=== PATIENT | male | born 1990 | race Caucasian/White ===

== ENCOUNTER 2023-11-24 04:29 | Emergency (ER) | payer OTHER, SELFPAY ==
[2023-11-24 04:31] VITALS: BP 174/104
--- NOTE | 2023-11-24 04:55 | ED.GENMED ---
History of Present Illness
General
Chief Complaint: Anxiety
Source: patient and family (Father who is at bedside)
Exam Limitations: none
Time Seen by Provider: 11/24/23 04:43
Nursing documentation reviewed up to this point in time: agreed with
Travel History
Have you had any contact with someone who has COVID-19?: No
Do you have any symptoms of coronavirus? Fever > 100 degrees, chills, cough, shortness of breath, sore throat, loss of taste or smell, muscle aches, or headache?: No
History of Present Illness
History of Present Illness:
This is a 33-year-old morbidly obese gentleman who has history of insulin requiring diabetes, hypertension, hyperlipidemia who awoke at 2 AM with complaints of sudden onset of substernal chest discomfort associated with palpitations which he
describes as a sense of his heart beating rapidly and beating hard but denies a sense that his heart was beating irregularly. Chest discomfort was also associated with shortness of breath, diaphoresis and a feeling of anxiety/panic. Chest pain
radiated mildly to his jaw and he also noted some tingling in his left arm.
No history of similar episodes in the past. Symptoms have overall improved but have not resolved. No definitive aggravating or relieving factors.
He denies nausea, no cough, no fever nor chills. He denies dizziness nor lightheadedness, denies abdominal nor back pain.
He denies leg pain or swelling.
No personal history of coronary artery disease nor family history of CAD.
Patient states blood sugars have been fairly well-controlled.
His daily medications include: Atorvastatin, valsartan/HCTZ, nebivolol, levothyroxine, Zetia, Ozempic 0.5 mg, NovoLog, Tresiba.
Past History
Past History
ED Past Medical History: HTN, Hypercholesterolemia, IDDM, Hypothyroidism and Other (Morbid obesity)
ED Past Surgical History: None
Social History
Tobacco: Non-smoker
Alcohol: None
Drug: None
Personal: Single
Living: with family
Family History
Family History: Negative CAD
Phy Exam
Physical Exam
Physical Exam:
GENERAL: 33-year-old obese gentleman appears his stated age, awake and alert, pleasant, easily communicative, appears very mildly apprehensive otherwise in no acute distress. Father is accompanying.
EYE: anicteric
NECK: Supple, nontender, no meningismus, no significant adenopathy. No JVD.
ENT: oral mucosa is moist. No rhinorrhea.
CARDIAC: Regular rate and rhythm. no murmur. No rub.
LUNGS: Clear breath sounds bilaterally, no acute respiratory distress, no wheezes/rales/rhonchi
ABDOMEN: Rotund, soft, nondistended, without focal tenderness, no r/g, no cvat. normoactive BS.
NEUROLOGICAL: Alert and oriented x3, no focal neuro deficits.
SKIN: Warm and minimally diaphoretic, normal color, skin intact. No rash.
MUSCULOSKELETAL: No C/C/E. peripheral pulses are full and equal b/l. No palpable tenderness.
PSYCH: Normal and appropriate interaction.
Scores
Heart Score for Chest Pain Patients
STEMI patient?: No
History: Moderately Suspicious
ECG: Normal
Age: </= 45 years
Risk Factors: >/= 3 Risk Factors or History of CAD
Troponin: </= Normal Limit
Heart Score for Chest Pain Patients: 3
Heart Score Risk: 2.5% MACE over next 6 weeks
Course
Orders/Labs/Results
Orders:
Orders
11/24/23 04:54
Aspirin Chewable [Low Strength Aspirin] 324 mg PO NOW STA
11/24/23 04:55
Electrocardiogram (*1) Stat
Reason for Study: Other
Other Reason for Exam: chest pain
Cardiac Monitoring- Treatment ONCE
EKG- Treatment ONCE
CR Chest - 2 Views Urgent
Comment:
Reason For Exam: CP, SOB
11/24/23 05:14
Complete Blood Count/With Diff Urgent
Comprehensive Metabolic Panel Urgent
NT-proBNP Urgent
PTT Urgent
TSH Urgent
Troponin I Urgent
11/24/23 06:11
CT Chest Angio W/wo Iv Contras Urgent
Comment:
Reason For Exam: acute CP, accelerated HTN
11/24/23 07:00
Electrocardiogram (*1) Urgent
Reason for Study: Chest Pain
EKG- Treatment ONCE
Troponin I Urgent
Abnormal Lab Results
11/24/23
05:14
Abs Immat Gran (auto) 0.1 H 10^3/uL
(0-0.05)
Immature Gran % 0.7 H %
(0-0.5)
Sodium 133 L mmol/L
(135-145)
Glucose 252 H mg/dl
(70-99)
Alkaline Phosphatase 138 H U/L
(38-126)
11/24/23 05:14
11/24/23 05:14
Vital Signs
Initial and Last Documented VS:
Initial Vital Signs
Temp Pulse Resp BP Pulse Ox
98.1 F 82 18 174/104 98
11/24/23 04:31 11/24/23 04:31 11/24/23 04:31 11/24/23 04:31 11/24/23 04:31
Last Documented Vital Signs
Temp Pulse Resp BP Pulse Ox
98.1 F 90 17 134/76 97
11/24/23 04:31 11/24/23 07:00 11/24/23 07:00 11/24/23 07:00 11/24/23 07:00
MDM/Problems Addressed
Differential Diagnosis Includes:
Concern for ACS, accelerated hypertension, aortic dissection, GERD, arrhythmia, musculoskeletal chest pain, PE. Patient does have history of hypothyroidism, acute thyroid disorder as cause for symptoms is much less likely.
Will check labs including troponin, EKG and will consider imaging depending on results.
Will give 324 mg chewable aspirin now.
Chronic conditions affecting care: DM, HTN and Other (Hyperlipidemia, hypothyroidism)
*Radiology
Radiology exam reviewed: preliminary read by ED provider (Chest x-ray shows hazy nodular density left hilum otherwise unremarkable. No old chest x-rays to compare.) and radiology read reviewed
*Pulse Oximetry
Patient hypoxic: no
*EKG
Interpreted by ED Provider?: Yes
Comparison EKG: no comparison EKG present
Rate: normal
Rhythm: sinus
Herron: normal axis
Interval: normal interval
QRS Pattern: normal QRS
Ischemia: other (Mild early repolarization laterally and inferiorly without reciprocal changes.)
*Logistics Team Lead Interpretation
Rate: normal
Interpretation: normal
Rhythm: sinus
*Critical Care Note
Total Time (30-74mins, 75-104mins- exclusive of procedures): Not Applicable
Update Note
Update Note:
Patient is chest pain-free and comfortable within 40 minutes after arrival to the ED.
Initial EKG shows mild early repolarization inferolaterally but no reciprocal changes. No old EKGs to compare.
Moderate hypertension noted initially 174/104, has improved to 139/88 upon recheck.
Labs thus far are unremarkable save for a moderately elevated glucose of 252. Initial troponin is negative. BNP is normal. TSH is pending.
Chest x-ray shows hazy nodular density left hilum, otherwise unremarkable. No old EKGs to compare.
Will plan to repeat troponin and EKG at 7 AM.
Due to significantly elevated blood pressure initially with acute chest pain there is still some concern for aortic dissection thus will check CT angiogram of the chest. CT will also better demonstrate left nodular hilar density.
11/24/2023 0729 AM
Patient remains pain-free and comfortable.
Blood pressure has normalized without intervention.
CAT scan shows no evidence of dissection nor PE. Clear lung mccarty. There is note of cholelithiasis with no evidence of cholecystitis. There is also note of fatty liver, diffuse pancreatic parenchymal atrophy.
Acute chest pain may have been biliary colic in nature. It is reassuring that he is pain-free and comfortable.
Repeat EKG is similar and unchanged from previous.
Repeat troponin is pending and if remains negative we will plan for discharge to home with referral to our chest pain hotline especially in light of multiple risk factors for coronary artery disease.
Due to cholelithiasis and potential biliary colic as cause for pain will refer to general surgery as well.
ED Attending Note
-
Portions of this chart may have been created with voice recognition software.� Occasional wrong word or��sound alike� substitutions may have occurred due to the inherent limitations of voice recognition software.
Discharge Plan
Departure
Condition: Good
Discharge Problem:
Nonspecific chest pain, Cholelithiases
Instructions: Low Cholesterol, Saturated Fat, and Trans Fat Diet , Gallstones (DC), Chest Pain CBC Follow Up
Prescriptions:
No Action
atorvastatin 80 mg Tablet
80 mg PO DAILY
levothyroxine 75 mcg Tablet
75 mcg PO DAILY
insulin aspart U-100 [Novolog FlexPen U-100 Insulin] 100 unit/mL (3 mL) Insulin Pen
30 - 50 sliding scale dose SC TID
valsartan-hydrochlorothiazide 320-12.5 mg Tablet
1 tab PO DAILY
nebivolol 10 mg Tablet
10 mg PO DAILY
insulin degludec [Tresiba FlexTouch U-100] 100 unit/mL (3 mL) Insulin Pen
120 unit SC DAILY
Ozempic 0.25 mg or 0.5 mg (2 mg/3 mL) Pen Injector
0.5 mg SC QWEEK
Referrals:
Peter Montemayor MD [Family Provider] - Call in 1-3 days for appt
Marlon Green MD [Active] - Call in 1-3 days for appt
Interventions
Interventions:
*Risk Screen - Suicide Last Done: 11/24/23 04:31
*General Assessment Last Done: 11/24/23 04:58
*Neglect/Abuse Screening Last Done: 11/24/23 04:31
ED- Fall Risk Assessment Last Done: 11/24/23 05:23
*ED COVID-19 Vaccine History Last Done: 11/24/23 04:35
ED-Psychological Assessment Last Done: 11/24/23 06:59
[2023-11-24 04:58] VITALS: BMI 47.9
[2023-11-24] MEDS: LOW STRENGTH ASPIRIN 324 MG PO (05:13)
[2023-11-24 05:20] VITALS: BP 139/88
[2023-11-24 05:31] LABS: % Basophils 0.9 % (0-2); % Eosinophils 4.7 % (0-6); % Immature Granulocytes 0.7 % (0-0.5); % Lymphocytes 30.3 % (20.5-51.1); % Monocytes 6.4 % (1.7-9.3); Absolute Basophils 0.1 10^3/uL (0-0.2); Absolute Eosinophils 0.4 10^3/uL (0-0.7); Absolute Immature Granulocytes 0.1 10^3/uL (0-0.05); Absolute Lymphocytes 2.8 10^3/uL (1.2-3.4); Absolute Monocytes 0.6 10^3/uL (0.1-0.6); Absolute Neutrophils 5.3 10^3/uL (1.4-6.5); Hematocrit 41.2 % (39.0-52.0); Mean Corp Hgb Conc. 36.4 g/dL (33.0-37.0); Mean Corpuscular Hgb 29.6 pg (27.0-31.0); Mean Corpuscular Volume 81.3 fL (80.0-94.0); Mean Platelet Volume 9.6 fL (7.4-10.4); Nucleated Red Blood Cells % 0 % (-); Platelet Count 228 10^3/uL (130-400); Red Blood Cell Count 5.07 10^6/uL (4.70-6.10); Red Cell Dist. Width 12.7 % (11.5-14.5); White Blood Cell Count 9.2 10^3/uL (4.8-10.8)
--- NOTE | 2023-11-24 05:34 | EDRN ---
Pt woke at 0200 with tightness in the center of his chest, numbness in his L arm and pain in his L jaw. Pt felt sob and says his heart was beating rapidly. Diaphoretic. Pt concerned he was having a OH vs panic attack so he came to the ED for
evaluation. Pt says tightness in his chest is gone and he only has 'a little tingling' in his L arm now. No jaw pain or sob. Pt denies fever/chills, abd pain, n/v, urinary symptoms. Pt reports his blood sugars have been well controlled.
[2023-11-24 05:48] LABS: APTT 28.7 Sec (23.4-35.0)
[2023-11-24 05:53] LABS: ALT (SGPT) 18 U/L (0-50); AST (SGOT) 24 U/L (17-59); Albumin 3.8 g/dl (3.5-5.0); Alkaline Phosphatase 138 U/L (38-126); Blood Urea Nitrogen 16 mg/dl (9-20); Calcium 8.9 mg/dl (8.4-10.2); Carbon Dioxide 25 mmol/L (22-30); Chloride 100 mmol/L (98-107); Estimated Creatinine Clearance > 125 ml/min; Glucose 252 mg/dl (70-99); Potassium 4.2 mmol/L (3.5-5.1); Sodium 133 mmol/L (135-145); Total Bilirubin 0.9 mg/dl (0.2-1.3); Total Protein 6.5 g/dl (6.3-8.2); eGFR > 60.00
[2023-11-24 05:55] LABS: NT-proBNP 20.8 pg/ml; Troponin I < 0.012 ng/ml
[2023-11-24 06:05] VITALS: BP 144/87
[2023-11-24 06:22] LABS: TSH 3.48 uIU/ml (0.47-4.68)
[2023-11-24 07:00] VITALS: BP 134/76
[2023-11-24 07:45] LABS: Troponin I < 0.012 ng/ml
== END 2023-11-24 07:54 | disposition home or self-care (01) ==
LOC: EMR 04:29
PROVIDERS: EMERGENCY PHYSICIAN Emergency Medicine; FAMILY PHYSICIAN Family Medicine
DX: R07.89 Other chest pain (principal); K80.20 Calculus of gallbladder without cholecystitis without obstruction; E11.9 Type 2 diabetes mellitus without complications; E78.00 Pure hypercholesterolemia, unspecified; I10 Essential (primary) hypertension
CPT/HCPCS: 99285; 71046; 71275; 80053; 83880; 84443; 84484; 85025; 85730; 93005; Q9967

== ENCOUNTER 2023-12-18 06:26 | Day surgery (SDC) | payer OTHER, SELFPAY ==
--- NOTE | 2023-12-15 10:23 | SUR.OPER ---
Kateryna @ Dr. Merlos office notified of patients 11/24 glucose 252
[2023-12-18] VITALS (8 sets, daily range): BP systolic 122–139; BP diastolic 74–92; BMI 44.4
[2023-12-18 11:40] LABS: Glucose - Point of Care 195 mg/dl (70-99)
[2023-12-18] MEDS: TYLENOL 1000 MG PO (11:46)
[2023-12-18] MEDS: NORMOSOL-R 1000 IV (11:46)
[2023-12-18] MEDS: VANCOCIN 300 MG IV (11:57)
[2023-12-18] MEDS: VANCOCIN 300 ML IV (11:57)
--- NOTE | 2023-12-18 12:21 | W.SUR.PREOP ---
Pre-Operative Surgical Note
-
I have examined this patient prior to the performance of the scheduled procedure.
The patient's condition is unchanged from the time of the current History and
Physical and the patient is able to undergo the scheduled procedure.
[2023-12-18] MEDS: NOVOLOG vial 2 UNITS SC ×2 (12:22→14:57)
[2023-12-18] MEDS: BYSTOLIC 10 MG PO (12:32)
[2023-12-18 13:07] LABS: Glucose - Point of Care 246 mg/dl (70-99)
[2023-12-18 14:08] LABS: Glucose - Point of Care 170 mg/dl (70-99)
--- NOTE | 2023-12-18 14:32 | W.IMMPOSTOP ---
Surgical Immed Post Op Note
-
Primary Surgeon: Marlon Green MD
Assisting Surgeon: None
Pre-op Diagnosis: Biliary colic, fatty liver disease
Post-op Diagnosis: Chronic cholecystitis, fatty liver disease
Procedure Performed:
1. Laparoscopic cholecystectomy with cholangiogram.
2. Liver biopsy.
Anesthesia Type: General
Specimen / Cultures:
1. Gallbladder and contents
2. Liver biopsy
Estimated Blood Loss: 11 cc
Complications: None
Operative Findings: Chronic cholecystitis with obliteration of the natural planes in the cystic triangle due to two medium sized stones stuck in the infundibulum. Critical view of safety was obtained prior to a cholangiogram which demonstrated no
filling defects. Duct ligated with 0 PDS Endoloop.
Known fatty liver disease, policy services representative biopsy of the liver taken from segment 4.
--- NOTE | 2023-12-18 14:35 | OR.RPT ---
Operative Report
Operative Report
Patient Name: Nico Cesar
: 1990
Date of Operation: 12/18/2023
Preoperative Diagnosis: Symptomatic Cholelithiasis, fatty liver disease
Postoperative Diagnosis: Chronic cholecystitis, fatty liver disease
Procedure(s):
1. Laparoscopic Cholecystectomy with Cholangiogram
2. Liver biopsy
Surgeon(s):
Dr. Green
Glass Forming Crew Member(s):
DEBBIE Jane
Anesthesia: General
Estimated Blood Loss: 11 cc
Urine Output: None
Drains/Lines/Implants: None
Specimens:
1. Gallbladder and contents
2. Liver biopsy
HPI/Surgical Indications:
This is a a 33-year-old male with a history of diabetes, morbid obesity (BMI 44) who presents with intermittent postprandial right upper quadrant abdominal pain. Exam, labs and imaging are consistent with symptomatic cholelithiasis and known fatty
liver disease. Risks/Benefits/Alternatives were discussed at length, and the patient agreed to proceed with surgery.
Findings:
Chronic cholecystitis with obliteration of the natural planes in the cystic triangle due to two medium sized stones stuck in the infundibulum. Critical view of safety was obtained prior to a cholangiogram which demonstrated no filling defects.
Duct ligated with 0 PDS Endoloop.
Known fatty liver disease, customer care representative biopsy of the liver taken from segment 4.
Procedure Description:
The patient was brought to the Operating Room and placed in the supine position. IV antibiotics were infused and sequential compression devices were confirmed to be on. Following uneventful induction of general endotracheal anesthesia, an
orogastric tube was placed. The abdomen was prepped and draped in the usual sterile fashion. The abdomen was entered using a left subcostal Veress technique followed by a 11 mm right upper quadrant Optiview trocar. Pneumoperitoneum to 15 mmHg
pressure was obtained without difficulty and we confirmed that no injury had occurred during our entry. The patient was positioned in reverse trendelenberg and rotated with the right side up slightly. Two 5mm trocars were then placed along the right
subcostal margin, and a 12 mm port in the epigastrium. A locking grasping forceps was placed on the fundus of the gallbladder where it was then retracted cephalad and to the right. Using appropriate grasping instruments, the peritoneum overlying the
gallbladder was incised. The gallbladder was encased in fat and so we tediously dissected down to initially very thin and normal-appearing gallbladder wall. Removed inferiorly the planes became much more difficult to identify and looked
chronically inflamed. The infundibulum was dissected off of the cystic plate but we are unable to identify the true cystic duct/gallbladder junction. What appeared to be the cystic duct appeared quite dilated due to 2 stones which were gently
milked back into the gallbladder and excluded using a locking Prestige grasper. The rest the tissue in the cystic fossa appeared quite inflamed and appeared fairly close to where I anticipated the common bile duct to be traversing so I made an
incision in the infundibulum and passed cholangiocatheter. An intraoperative cholangiogram was performed which demonstrated just a few more centimeters of remnant gallbladder before narrow cystic duct followed by common hepatic and common bile duct
which appeared normal and free of any filling defects. There was free flow of contrast into the duodenum. Confident now with our anatomy infundibulum was clipped and divided and a 0 PDS Endoloop was passed around the structures and ligated near
the start of the cystic duct based on the cholangiogram. The remaining soft tissue attachments of the gallbladder to the liver bed were then divided using electrocautery. A true cystic artery as well as a posterior cystic artery were identified
medially and laterally and clipped with 5 mm titanium endoclips. There was some spillage of bile, but no spillage of stones. The gallbladder bed was inspected and excellent hemostasis was obtained. The gallbladder was extracted through the 12 mm
trocar site using an endocatch bag. We then turned our attention to the liver which appeared irregular in shape and grossly abnormal consistent with his known fatty liver disease which had never been previously biopsied. Small customer care representative
sample was biopsy from segment 4 of the liver. The biopsy site was cauterized until hemostatic. The specimen was passed off the field. The abdomen was again irrigated and excellent hemostasis was assured. The 12 mm trocar site was closed using a
figure of 8 of 0 PDS. All remaining trocars were then removed and the pneumoperitoneum was evacuated. All trocar sites were closed at the skin level using 4-0 Monocryl followed by Dermabond. Overall, the patient tolerated the procedure well and
was taken to the Recovery Room postoperatively in stable condition.
I was the attending physician and performed the procedure with assistance from the AIR CONDITIONING EQUIPMENT MECHANIC above . I was present for all portions of the case
Marlon Green MD
[2023-12-18 14:45] LABS: Glucose - Point of Care 189 mg/dl (70-99)
== END 2023-12-18 16:40 | disposition home or self-care (01) ==
LOC: SDS 06:26
PROVIDERS: ATTENDING PHYSICIAN Surgery; FAMILY PHYSICIAN Family Medicine
DX: K80.64 Calculus of gallbladder and bile duct with chronic cholecystitis without obstruction (principal); K76.0 Fatty (change of) liver, not elsewhere classified
CPT/HCPCS: 47563; 47000; 88304; 88307; 74300; 76000; 82962; 88313